=== PATIENT | female | born 1990 | race Caucasian/White ===

== ENCOUNTER 2020-08-14 17:10 | Emergency (ER) | payer OTHER, MEDICAID ==
[~2020-08-14] VITALS: Ht 175.3 cm; Wt 158.8 kg
[2020-08-14] MEDS ORDERED: PROAIR HFA8.5 GM INH (17:44)
[2020-08-14 18:39] VITALS: BP 154/108
== END 2020-08-14 18:40 | disposition home or self-care (01) ==
LOC: M.ERS 17:10
DX: U07.1 COVID-19 (principal); J45.909 Unspecified asthma, uncomplicated